=== PATIENT | female | born 1990 | race African-American/Black ===

== ENCOUNTER → 2017-04-15 | Outpatient (CLI) | payer OTHER ==
--- NOTE | 2017-04-20 13:04 | HM ---
HOLTER MONITOR REPORT 24 HOUR HOLTER MONITOR: DATE OF SERVICE: 04/15/2017. INDICATION: Palpitations. CLINICAL INFORMATION: The patient was monitored for 24 hours. The baseline rhythm appeared to be a sinus mechanism with a minimum heart rate of 70 beats per minute, max heart rate 130 beats per minute. The average heart rate of 80 beats per minute. Ventricular ectopic events and supraventricular ectopic events were not seen during this 24 hour monitoring. There is no evidence of sinus pause or sinus arrest. The patient did not have any diary that was attached to the study. CONCLUSION: 1. Sinus rhythm as a baseline mechanism. 2. Very rare supraventricular ectopic events seen. 3. No evidence of any ventricular ectopic events seen. 4. There is no evidence of sinus pause or sinus arrest. 5. There is no evidence of tachy or bradyarrhythmia noted. MMODL / IJN: [id number] /
== END | disposition home or self-care (01) ==
LOC: RADECHMAIN 12:00
PROVIDERS: ATTEND Internal Medicine
DX: R00.2 Palpitations (principal); Z88.6 Allergy status to analgesic agent; I10 Essential (primary) hypertension
CPT/HCPCS: 93225; 93226